=== PATIENT | male | born 1970 | race Caucasian/White ===

== ENCOUNTER → 2020-06-09 | Outpatient (CLI) | payer OTHER ==
[~2020-06-09] MED LIST: ACID REDUCER20 MG PO; CYCLOBENZAPRINE5 MG PO; ELIQUIS2.5 MG PO; FENOFIBRATE145 MG PO; LISINOPRIL20 MG PO; MELOXICAM15 MG PO; PERCOCET 10-321 EACH PO
[2020-06-09 10:07] LABS: RED BLOOD COUNT 4.98 M/UL (4.20-5.50); WHITE BLOOD COUNT 4.6 K/UL (4.5-11.0)
[2020-06-09 10:26] LABS: BUN/CREATININE RATIO 14 (0-10)
== END ==
LOC: LAB 09:45
PROVIDERS: Family Medicine
DX: Z12.5 Encounter for screening for malignant neoplasm of prostate (principal); I10 Essential (primary) hypertension; E78.2 Mixed hyperlipidemia
CPT/HCPCS: 36415; 80053; 80061; 85025; G0103

== ENCOUNTER → 2021-05-12 | Outpatient (CLI) | payer OTHER ==
[2021-05-12 09:08] LABS: BUN/CREATININE RATIO 18 (0-10)
== END ==
LOC: LAB 08:00
PROVIDERS: Nurse Practitioner Family
DX: Z12.5 Encounter for screening for malignant neoplasm of prostate (principal); I10 Essential (primary) hypertension
CPT/HCPCS: 36415; 80053; 80061; 84153; 84439; 84443; 85025

== ENCOUNTER → 2021-10-19 | Day surgery (SDC) | payer OTHER | END | disposition home or self-care (01) | LOC: OR 06:55 | DX: Z12.11 Encounter for screening for malignant neoplasm of colon (principal); K64.1 Second degree hemorrhoids; K21.9 Gastro-esophageal reflux disease without esophagitis; G47.30 Sleep apnea, unspecified; Z99.89 Dependence on other enabling machines and devices; E66.9 Obesity, unspecified; Z68.32 Body mass index [BMI] 32.0-32.9, adult; Z79.899 Other long term (current) drug therapy | CPT/HCPCS: J2250; J2704; J7040 ==